=== PATIENT | male | born 1970 | race Caucasian/White ===

== ENCOUNTER 2018-05-13 12:43 | Outpatient (REF) | payer OTHER, SELFPAY ==
[2018-05-13 21:36] LABS: Cholesterol 226 mg/dL (50-200); HDL Cholesterol 55 mg/dL (40-60); LDL CHOLESTEROL 150 mg/dL (<100); Triglyceride 135 mg/dL (30-150)
== END 2018-05-13 13:03 ==
LOC: NCHCN 12:43
PROVIDERS: PCP Internal Medicine; Visit Provider Internal Medicine
DX: Z00.00 Encounter for general adult medical examination without abnormal findings (principal)
CPT/HCPCS: 80061; 83721

== ENCOUNTER 2021-03-13 15:18 | Outpatient (REF) | payer OTHER, SELFPAY ==
[2021-03-13 15:03] LABS: HCT 45.9 % (40.0-50.0); HGB 14.9 g/dL (13.5-17.5); MCH 28.8 pg (27.0-33.0); MCHC 32.5 % (32.0-36.0); MCV 88.8 fL (80-95); MPV 9.6 fL (8.0-11.0); Platelet Count 275 10^3/uL (130-400); RBC 5.17 10^6/uL (4.36-5.78); RDW 12.4 % (11.8-14.1); RDW-SD 40.6 fL; WBC 5.13 10^3/uL (4.4-10.8)
[2021-03-13 21:43] LABS: ALT 76 U/L (16-63); AST 42 U/L (15-37); Albumin 4.3 g/dL (3.4-5.0); Alkaline Phosphatase 56 U/L (46-116); Anion Gap 8.3 mmol/L (3-11); BUN 16 mg/dL (7-18); Bilirubin, Total 0.4 mg/dL (0.2-1.0); CO2 29.7 mmol/L (21.0-32.0); CREATININE 0.7 mg/dL (0.70-1.30); Calcium 9.4 mg/dL (8.5-10.1); Chloride 102 mmol/L (98-107); Glucose 99 mg/dL (74-106); Potassium 4.3 mmol/L (3.5-5.1); Sodium 140 mmol/L (136-145); TSH (W/Ref FT4) 4.17 uIU/mL (0.36-3.74); Total Protein 7.7 g/dL (6.4-8.2)
[2021-03-13 22:05] LABS: FREE T4 1.01 ng/dL (0.76-1.46)
[2021-03-14 09:59] LABS: Hepatitis C Ab w Rflx HCV PCR Negative (Negative)
== END 2021-03-13 15:19 | disposition home or self-care (01) ==
LOC: NCHCN 15:18
PROVIDERS: PCP Internal Medicine; Visit Provider Family Medicine
DX: R03.0 Elevated blood-pressure reading, without diagnosis of hypertension (principal); R42 Dizziness and giddiness; Z00.00 Encounter for general adult medical examination without abnormal findings; Z11.59 Encounter for screening for other viral diseases
CPT/HCPCS: 80053; 85027; 86803; 84439; 84443

== ENCOUNTER 2021-04-08 09:15 | Outpatient (REF) | payer OTHER, SELFPAY ==
[2021-04-08 18:32] LABS: Anion Gap 7.5 mmol/L (3-11); BUN 16 mg/dL (7-18); CO2 31.5 mmol/L (21.0-32.0); CREATININE 0.9 mg/dL (0.70-1.30); Calcium 9.4 mg/dL (8.5-10.1); Chloride 101 mmol/L (98-107); Glucose 106 mg/dL (74-106); Potassium 4.8 mmol/L (3.5-5.1); Sodium 140 mmol/L (136-145)
== END 2021-04-08 09:16 | disposition home or self-care (01) ==
LOC: NCHCN 09:15
PROVIDERS: PCP Internal Medicine; Visit Provider Family Medicine
DX: R42 Dizziness and giddiness (principal); R03.0 Elevated blood-pressure reading, without diagnosis of hypertension
CPT/HCPCS: 80048

== ENCOUNTER 2022-04-02 10:53 | Outpatient (REF) | payer SELFPAY ==
[2022-04-02 15:54] LABS: Anion Gap 8.2 mmol/L (3-11); BUN 15 mg/dL (7-18); CO2 29.8 mmol/L (21.0-32.0); Calcium 9.5 mg/dL (8.5-10.1); Chloride 101 mmol/L (98-107); Glucose 107 mg/dL (74-106); Potassium 4.4 mmol/L (3.5-5.1); Sodium 139 mmol/L (136-145)
== END 2022-04-02 10:54 | disposition home or self-care (01) ==
LOC: NCHCN 10:53
PROVIDERS: PCP Internal Medicine; Visit Provider Family Medicine
DX: Z00.00 Encounter for general adult medical examination without abnormal findings (principal)
CPT/HCPCS: 80048